=== PATIENT | male | born 1980 | race Caucasian/White ===

== ENCOUNTER 2022-04-28 10:19 | Emergency (ER) | payer OTHER, SELFPAY ==
[2022-04-28 10:35] VITALS: BP 135/84; PULSE 79; RESP 16; TEMP 36.6; O2SAT 99
--- NOTE | 2022-04-28 11:02 | ED.URI ---
HPI - URI/Sore Throat General Chief Complaint: Upper Respiratory Infection Stated Complaint: Congestion,Cough,Shortness of Breath Time Seen by Provider: 04/28/22 11:03 Source: patient and RN notes reviewed Mode of arrival: ambulatory Limitations: no limitations History of Present Illness HPI Narrative: 41 y/o male presented for c/o cough, sinus congestion and sore throat worsening for 5 days. Endorses sinus drainage is mucous and blood. States sore throat is worse at night due to post nasal drainage. States the throat feels 'swollen.' Patient has recurrent allergies, stating if he misses a dose of antihistamine he feels bad. Using saline lavage and OTC meds without change. Denies sob, wheezing, n/v/d/f/c. MD elicited complaint: sore throat Review of Systems Review of Systems: CONSTITUTIONAL: Denies malaise, chills, sweats, fever EYES: Denies visual changes, redness, or discharge ENT: per HPI CARDIOVASCULAR: Denies chest pain, palpitations, edema RESPIRATORY: Denies dyspnea GASTROINTESTINAL: Denies abdominal pain, nausea, vomiting, diarrhea SKIN: Denies rash or itching MUSCULOSKELETAL: denies myalgia Exam Narrative: GENERAL: well-appearing EYES: PERRLA, conjunctivae clear ENT: Mucous membranes moist. TMs pearly martinez with normal light reflex bilaterally; no tragal tenderness. Oropharynx erythematous without lesions or exudate, no drooling, no hoarseness, no trismus, uvula midline. NECK: Supple. No lymphadenopathy CHEST: Clear to auscultation, breath sounds equal. HEART: Regular rate and rhythm. No murmur heard. SKIN: Warm, dry, no rash. NEURO: Alert and oriented x3. PSYCH: Normal mood and affect Course Course Emergency Course: Patient is aware of diagnosis, understands and agrees to treatment plan. Anticipatory guidance given. Patient agrees to follow-up as directed and is aware of reasons to seek care at the emergency department. Portions of this record may have been created with voice recognition software Level of Care: Express Care Visit Vital Signs Vital signs: Vital Signs Temperature 97.8 F 04/28/22 10:35 Pulse Rate 79 04/28/22 10:35 Respiratory Rate 16 04/28/22 10:35 Blood Pressure 135/84 04/28/22 10:35 Pulse Oximetry 99 04/28/22 10:35 Oxygen Delivery Room Air 04/28/22 10:35 Temperature 97.8 F 04/28/22 10:35 Pulse Rate 79 04/28/22 10:35 Respiratory Rate 16 04/28/22 10:35 Blood Pressure 135/84 04/28/22 10:35 Pulse Oximetry 99 04/28/22 10:35 Oxygen Delivery Room Air 04/28/22 10:35 reviewed MDM - URI/Sore Throat MDM Narrative Medical decision making narrative: Flu and strep test negative. Results reviewed with pt. He denies concern for covid. Advised supportive measures and signs/symptoms to go to the ER. Pt is appropriate for outpt treatment and f/u. Differential Diagnosis Differential diagnosis: Likely upper respiratory infection, sinusitis and viral infection Lab Data Labs: Influenza A Screen Negative Reference Range: Negative Influenza B Screen Negative Reference Range: Negative Strep Screen Presumptive Negative *(Reference Range: Negative)* Discharge Plan Discharge Clinical Impression: Upper respiratory infection Qualifiers: URI type: unspecified URI Qualified Code(s): J06.9 - Acute upper respiratory infection, unspecified Patient Disposition: Home, Self-Care Condition: Stable Instructions: Rhinosinusitis (ED) Additional Instructions: Rapid strep swab was negative today You will be notified in a few days if the culture comes back positive for strep, and appropriate antibiotics will be called in at that time. if symptoms are due to a viral illness, it is not treated with antibiotics. Viral symptoms can be present for up to 10-14 days. Recommend Continue
== END 2022-04-28 11:35 | disposition home or self-care (01) ==
PROVIDERS: Emergency Provider Nurse Practitioner Family
DX: J06.9 Acute upper respiratory infection, unspecified (principal); Z20.822 Contact with and (suspected) exposure to COVID-19
CPT/HCPCS: 87081; 87426; 87804; 87880; 99203; C9803; G0463